=== PATIENT | female | born 1965 ===

== ENCOUNTER 2017-03-29 16:02 | Outpatient (CLI) | payer BC ==
--- NOTE | 2017-03-29 16:47 | Mammography Report ---
Screening mammogram: Routine views demonstrate a heterogeneously dense and symmetrically distributed fibroglandular pattern. There is no focal mass, architectural distortion, or calcification. Comparison made to prior study of March 2016. An asymmetry described in the lateral left breast at that time is no longer identified. CAD used. Impression: Benign breast pattern. Recommendation: Annual mammogram followup. BI-RADS CATEGORY: 1 = Negative ACR BI-RADS MAMMOGRAPHIC CODES: 0 = Needs additional imaging evaluation; 1 = Negative; 2 = Benign; 3 = Probably benign; 4 = Suspicious; 5 = Malignant; 6 = Known biopsy-proven malignancy COMMENT: 1. Dense breast tissue, i.e., adenosis, fibrocystic changes, etc., may obscure an underlying neoplasm. 2. Approximately 10% of cancers are not detected with mammography. 3. A negative mammography report should not delay biopsy if a clinically suspicious mass is present. A
== END 2017-03-29 16:03 | disposition home or self-care (01) ==
LOC: SPVWC 16:02
PROVIDERS: ATTEND Obstetrics & Gynecology
DX: Z12.31 Encounter for screening mammogram for malignant neoplasm of breast (principal)
CPT/HCPCS: 77067; G0202